=== PATIENT | male | born 1950 | race Caucasian/White ===

== ENCOUNTER 2019-04-11 16:00 | Outpatient (REF) | payer MEDICARE, SELFPAY ==
[2019-04-11 21:44] LABS: Calculated LDL 36 mg/dL; Cholesterol 138 mg/dL (50-200); HDL Cholesterol 67 mg/dL (40-60); Triglyceride 179 mg/dL (30-150)
== END 2019-04-11 16:20 ==
LOC: NCHCN 16:00
PROVIDERS: PCP Registered Nurse; Visit Provider Registered Nurse
DX: E78.5 Hyperlipidemia, unspecified (principal)
CPT/HCPCS: 80061; 83721

== ENCOUNTER 2019-10-10 15:16 | Outpatient (REF) | payer MEDICARE, SELFPAY ==
[2019-10-10 22:36] LABS: Anion Gap 10.1 mmol/L (3-11); BUN 17 mg/dL (7-18); CO2 27.9 mmol/L (21.0-32.0); CREATININE 1.22 mg/dL (0.70-1.30); Chloride 103 mmol/L (98-107); Estimated GFR 58.56 (mL/min/1.73m2); Glucose 89 mg/dL (74-106); Potassium 3.7 mmol/L (3.5-5.1); Sodium 141 mmol/L (136-145)
[2019-10-11 15:09] LABS: TSH (W/Ref FT4) 0.72 uIU/mL (0.36-3.74)
== END 2019-10-10 15:36 ==
LOC: NCHCN 15:16
PROVIDERS: PCP Registered Nurse; Visit Provider Registered Nurse
DX: I10 Essential (primary) hypertension (principal); Z86.39 Personal history of other endocrine, nutritional and metabolic disease
CPT/HCPCS: 80048; 84443

== ENCOUNTER 2020-02-07 13:26 | Outpatient (REF) | payer MEDICARE, SELFPAY ==
[2020-02-07 20:45] LABS: Anion Gap 6.6 mmol/L (3-11); BUN 24 mg/dL (7-18); CO2 29.4 mmol/L (21.0-32.0); CREATININE 1.37 mg/dL (0.70-1.30); Calcium 9.3 mg/dL (8.5-10.1); Chloride 103 mmol/L (98-107); Estimated GFR 51.22 (mL/min/1.73m2); Glucose 85 mg/dL (74-106); Potassium 3.9 mmol/L (3.5-5.1); Sodium 139 mmol/L (136-145); Uric Acid 5.6 mg/dL (3.5-7.2)
== END 2020-02-07 13:46 ==
LOC: NCHCN 13:26
PROVIDERS: PCP Registered Nurse; Visit Provider Registered Nurse
DX: I10 Essential (primary) hypertension (principal); M10.9 Gout, unspecified
CPT/HCPCS: 80048; 84550

== ENCOUNTER 2020-02-27 14:32 | Outpatient (REF) | payer MEDICARE, SELFPAY ==
[2020-02-27 21:40] LABS: Anion Gap 8.1 mmol/L (3-11); BUN 23 mg/dL (7-18); CO2 28.9 mmol/L (21.0-32.0); CREATININE 1.31 mg/dL (0.70-1.30); Calcium 9.6 mg/dL (8.5-10.1); Chloride 105 mmol/L (98-107); Estimated GFR 53.94 (mL/min/1.73m2); Glucose 92 mg/dL (74-106); Sodium 142 mmol/L (136-145)
== END 2020-02-27 14:52 ==
LOC: NCHCN 14:32
PROVIDERS: PCP Registered Nurse; Visit Provider Nurse Practitioner Family
DX: M10.9 Gout, unspecified (principal)
CPT/HCPCS: 80048

== ENCOUNTER 2020-08-30 14:37 | Outpatient (REF) | payer MEDICARE, SELFPAY | END 2020-08-30 14:57 | LOC: NCHCN 14:37 | PROVIDERS: PCP Registered Nurse; Visit Provider Registered Nurse | DX: M54.5 Low back pain (principal) | CPT/HCPCS: 87086 ==

== ENCOUNTER 2021-08-15 13:10 | Outpatient (REF) | payer MEDICARE, SELFPAY ==
[2021-08-15 22:00] LABS: ALT 28 U/L (16-63); AST 18 U/L (15-37); Albumin 3.9 g/dL (3.4-5.0); Alkaline Phosphatase 104 U/L (46-116); Anion Gap 8.9 mmol/L (3-11); BUN 19 mg/dL (7-18); Bilirubin, Total 1.4 mg/dL (0.2-1.0); CO2 30.1 mmol/L (21.0-32.0); CREATININE 1.1 mg/dL (0.70-1.30); Calcium 9.2 mg/dL (8.5-10.1); Calculated LDL 65 mg/dL (<100); Chloride 105 mmol/L (98-107); Cholesterol 150 mg/dL (<200); Glucose 78 mg/dL (74-106); HDL Cholesterol 63 mg/dL (40-60); Potassium 4.3 mmol/L (3.5-5.1); Sodium 144 mmol/L (136-145); Total Protein 6.9 g/dL (6.4-8.2); Triglyceride 112 mg/dL (<150)
== END 2021-08-15 13:11 | disposition home or self-care (01) ==
LOC: NCHCN 13:10
PROVIDERS: PCP Registered Nurse; Visit Provider Registered Nurse
DX: E78.5 Hyperlipidemia, unspecified (principal); I10 Essential (primary) hypertension; R17 Unspecified jaundice
CPT/HCPCS: 80053; 80061

== ENCOUNTER 2022-08-15 15:24 | Outpatient (REF) | payer OTHER, SELFPAY ==
[2022-08-15 21:21] LABS: Anion Gap 10.9 mmol/L (3-11); BUN 17 mg/dL (7-18); CO2 26.1 mmol/L (21.0-32.0); CREATININE 1.1 mg/dL (0.70-1.30); Calcium 9.1 mg/dL (8.5-10.1); Chloride 104 mmol/L (98-107); Estimated GFR 70.44 (mL/min/1.73m2); Glucose 103 mg/dL (74-106); Potassium 4.3 mmol/L (3.5-5.1); Sodium 141 mmol/L (136-145)
== END 2022-08-15 15:25 | disposition home or self-care (01) ==
LOC: NCHCN 15:24
PROVIDERS: PCP Registered Nurse; Visit Provider Registered Nurse
DX: I10 Essential (primary) hypertension (principal)
CPT/HCPCS: 80048

== ENCOUNTER 2023-06-29 18:43 | Outpatient (REF) | payer OTHER, SELFPAY ==
[2023-06-29 21:35] LABS: HCT 47.2 % (40.0-50.0); HGB 15.8 g/dL (13.5-17.5); MCH 30.4 pg (27.0-33.0); MCHC 33.5 % (32.0-36.0); MCV 91 fL (80-95); Platelet Count 304 10^3/uL (130-400); RBC 5.19 10^6/uL (4.36-5.78); RDW 12.3 % (11.8-14.1); RDW-SD 41.1 fL; WBC 8.32 10^3/uL (4.4-10.8)
[2023-06-29 22:18] LABS: Anion Gap 9.6 mmol/L (3-11); BUN 15 mg/dL (7-18); CO2 24.4 mmol/L (21.0-32.0); CREATININE 1.1 mg/dL (0.70-1.30); Calcium 9.1 mg/dL (8.5-10.1); Calculated LDL 45 mg/dL (<100); Chloride 110 mmol/L (98-107); Cholesterol 138 mg/dL (<200); Estimated GFR 70.44 (mL/min/1.73m2); Glucose 84 mg/dL (74-106); HDL Cholesterol 74 mg/dL (40-60); Magnesium 2.1 mg/dL (1.8-2.4); Potassium 4.4 mmol/L (3.5-5.1); Sodium 144 mmol/L (136-145); TSH (W/Ref FT4) 0.31 uIU/mL (0.36-3.74); Triglyceride 99 mg/dL (<150); Vitamin B12 277 pg/mL (193-986)
[2023-06-29 22:43] LABS: FREE T4 0.85 ng/dL (0.76-1.46)
[2023-06-29 23:07] LABS: Hemoglobin A1C 5.3 % (<5.7)
== END 2023-06-29 18:44 | disposition home or self-care (01) ==
LOC: NCHCN 18:43
PROVIDERS: PCP Registered Nurse; Visit Provider Nurse Practitioner Family
DX: I10 Essential (primary) hypertension (principal); Z86.39 Personal history of other endocrine, nutritional and metabolic disease; R41.3 Other amnesia; E78.5 Hyperlipidemia, unspecified; F32.9 Major depressive disorder, single episode, unspecified; Z00.00 Encounter for general adult medical examination without abnormal findings
CPT/HCPCS: 80048; 80061; 85027; 82607; 83036; 83735; 84439; 84443